=== PATIENT | male | born 1975 | race Caucasian/White ===

== ENCOUNTER 2016-11-13 21:51 | Observation (INO) | payer BC ==
[2016-11-13] MEDS ORDERED: NITROGLYCERIN SL TABS 0.4 MG TAB SUBLINGUAL STA (22:10)
[2016-11-13] MEDS ORDERED: ASPIRIN 81 MG CHEW PO STA (22:10)
--- NOTE | 2016-11-13 22:27 | ED ---
Chest Pain HPI <Santosh Arellano - Last Filed: 11/13/16 23:30> - General Source: patient, RN notes reviewed Mode of arrival: ambulatory Limitations: no limitations <Debra Galarza - Last Filed: 11/13/16 23:41> - General Chief Complaint: Chest Pain Stated Complaint: chest pain Time Seen by Provider: 11/13/16 22:04 - History of Present Illness Initial Comments: 41-year-old male presents to the emergency department with a chief complaint of chest pain. Patient states that work and a urinalysis tightness the left upper chest. Patient states he had some pain and numbness going down his left arm as well and he does have some pain radiating into the jaw. Patient states that this started about a 5 out of 10. Patient states he has hypertension. Patient states that he has no specific in her history. Patient has nausea vomiting with sweating at that time. Patient states that the pain seems to be better at this time it was at home. Patient denies any fever or chills. Patient denies any recent fever, chills, back pain, abdominal pain, numbness or tingling, dysuria or hematuria, constipation or diarrhea, headaches or visual changes, or any other current symptoms. (Debra Galarza) - Related Data Home Medications Medication Instructions Recorded Confirmed Ascorbic Acid [Vitamin C] 500 mg PO DAILY 11/13/16 11/13/16 Losartan [Cozaar] 50 mg PO DAILY 11/13/16 11/13/16 Allergies Allergy/AdvReac Type Severity Reaction Status Date / Time No Known Allergies Allergy Verified 11/13/16 22:59 Review of Systems ROS Other: All systems not noted in ROS Statement are negative. <Santosh Arellano - Last Filed: 11/13/16 23:30> ROS Other: All systems not noted in ROS Statement are negative. <Debra Galarza - Last Filed: 11/13/16 23:41> ROS Statement: Those systems with pertinent positive or pertinent negative responses have been documented in the HPI. EKG Findings - EKG Comments: EKG Findings:: Sinus tachycardia 103 bpm, normal axis, no atopy, no S-T depressions or elevations, T wave inversion in V3 and V4 V5 and V6 <Debra Galarza - Last Filed: 11/13/16 23:41> Past Medical History Past Medical History: Hypertension History of Any Multi-Drug Resistant Organisms: None Reported Past Surgical History: Orthopedic Surgery Past Psychological History: No Psychological Hx Reported Smoking Status: Never smoker Past Alcohol Use History: Occasional Past Drug Use History: None Reported <Debra Galarza - Last Filed: 11/13/16 23:41> General Exam <Santosh Arellano - Last Filed: 11/13/16 23:30> Limitations: no limitations <Debra Galarza - Last Filed: 11/13/16 23:41> - General Exam Comments Initial Comments: General: The patient is awake and alert, in no distress, and does not appear acutely ill. Eye: Pupils are equal, round and reactive to light, extra-ocular movements are intact; there is normal conjunctiva bilaterally. No signs of icterus. Ears, nose, mouth and throat: There are moist mucous membranes. Neck: The neck is supple, there is no tenderness. Cardiovascular: There is a regular rate and rhythm. No murmur, rub or gallop is appreciated. Respiratory: Lungs are clear to auscultation, respirations are non-labored, breath sounds are equal. No wheezes, stridor, rales, or rhonchi. Gastrointestinal: Soft, non-distended, non-tender abdomen without masses or organomegaly noted. There is no rebound or guarding present. No CVA tenderness. Bowel sounds are unremarkable. Back: There is no tenderness to palpation in the midline. There is no obvious deformity. No rashes noted. Musculoskeletal: Normal ROM, no tenderness, There is no pedal edema. There is no calf tenderness or swelling. Sensation intact. Pulses equal bilaterally 2+. Neurological: CN II-XII intact, There are no obvious motor or sensory deficits. Coordination appears grossly intact. Speech is normal. Skin: Skin is warm and dry and no rashes or lesions are noted. Psychiatric: Cooperative, appropriate mood & affect, normal judgment. (Debra Galarza) Chest Pain MDM <Santosh Arellano - Last Filed: 11/13/16 23:30> <Debra Galarza - Last Filed: 11/13/16 23:41> - [facility] Patient also evaluated by myself, Dr. Arellano. Patient does have some discomfort still. Patient updated on results and plan. Practitioner Liza contacted regarding case and will admit for Dr. Buchanan. Cardiology will be consulted. Patient states he did have a negative stress test a month and a half ago. (Santosh Arellano) 42-year-old male presents emergency department chief complaint chest pain. Patient had left sided chest pain left arm pain jaw pain. There is concern for possible cardiac origin. He did receive nitro with no improvement. We will start patient on morphine as well as heparin. This is discussed the patient isn 't agreement. (Debra Galarza) Disposition <Santosh Arellano - Last Filed: 11/13/16 23:30> Time of Disposition: 23:41 Decision Date: 11/13/16 Decision Time: 23:41 <Debra Galarza - Last Filed: 11/13/16 23:41> Clinical Impression: Unstable angina Disposition: ADMITTED IP TO THIS HOSP Condition: Stable
[2016-11-13 22:29] LABS: Basophils % (A) 1 %; CH 31.9; CHCM 36.5; Eosinophils # (A) 0.1 k/uL (0-0.7); Eosinophils % (A) 2 %; HCT 42.7 % (39.0-53.0); HDW 2.81; HGB 15.1 gm/dL (13.0-17.5); Luc # (Auto) 0.18; Luc % (Auto) 3; Lymphocytes # (A) 1.6 k/uL (1.0-4.8); Lymphocytes % (A) 22 %; MCHC 35.4 g/dL (31.0-37.0); MCV 87.7 fL (80.0-100.0); Mean Platelet Volume 7.6; Monocytes # (A) 0.4 k/uL (0-1.0); Monocytes % (A) 6 %; Neutrophils # (A) 4.8 k/uL (1.3-7.7); Neutrophils % (A) 67 %; RBC 4.87 m/uL (4.30-5.90); RDW 12.6 % (11.5-15.5); WBC 7.2 k/uL (3.8-10.6); WBC (Perox) 7.23
[2016-11-13 22:48] LABS: ALT 88 U/L (21-72); AST 41 U/L (17-59); Alkaline Phosphatase 61 U/L (38-126); Amylase <30 U/L (30-110); Anion Gap 13 mmol/L; Blood Urea Nitrogen 12 mg/dL (9-20); Calcium 9.7 mg/dL (8.4-10.2); Carbon Dioxide 24 mmol/L (22-30); Chloride 103 mmol/L (98-107); Glucose 185 mg/dL (74-99); Magnesium 2.1 mg/dL (1.6-2.3); Non-African American GFR(MDRD) >60 (>60 ml/min/1.73 sqM); Potassium 3.9 mmol/L (3.5-5.1); Sodium 140 mmol/L (137-145); Total Bilirubin 0.7 mg/dL (0.2-1.3); Total Protein 7.6 g/dL (6.3-8.2)
[2016-11-13 22:49] LABS: Partial Thromboplastin Time 22.7 sec (22.0-30.0); Prothrombin Time 9.9 sec (9.0-12.0)
[2016-11-13 23:00] LABS: Creatine Kinase 116 U/L (55-170)
[2016-11-13 23:13] LABS: Creatine Kinase MB 0.8 ng/mL (0.0-2.4); Troponin I <0.012 ng/mL (0.000-0.034)
--- NOTE | 2016-11-13 23:14 | XR ---
EXAMINATION TYPE: XR chest 2V DATE OF EXAM: 11/13/2016 10:55 PM COMPARISON: None. HISTORY: Chest pain TECHNIQUE: Frontal and lateral views of the chest are obtained. FINDINGS: There is no focal air space opacity, pleural effusion, or pneumothorax seen. The cardiac silhouette size is within normal limits. The osseous structures are intact. IMPRESSION: No acute cardiopulmonary process.
[2016-11-13] MEDS ORDERED: HEPARIN SODIUM,PORCINE 5,000 UNIT/ML 1 ML VIAL IV ONE (23:41)
[2016-11-13] MEDS ORDERED: NITROGLYCERIN SL TABS 0.4 MG TAB SUBLINGUAL PRN (23:41)
[2016-11-13] MEDS ORDERED: MORPHINE SULFATE 4 MG/ML SYRINGE IVP PRN (23:43)
[2016-11-13] MEDS ORDERED: MORPHINE SULFATE 4 MG/ML SYRINGE IVP STA (23:43)
[2016-11-13] MEDS ORDERED: HEPARIN SODIUM,PORCINE/D5W PMX 25,000 UNIT in DEXTROSE/WATER 1 500ML.BAG IV SCH (23:45)
[2016-11-14] MEDS: NITROGLYCERIN OINT 1 INCH/GM PACKET TOPICAL SCH ×2 (00:04→07:10)
[2016-11-14 03:28] VITALS: BMI 39.6
[2016-11-14 04:33] LABS: Cholesterol 180 mg/dL (<200); HDL Cholesterol 35 mg/dL (40-60); Triglycerides 191 mg/dL (<150)
[2016-11-14 04:34] LABS: Creatine Kinase 87 U/L (55-170)
[2016-11-14 04:47] LABS: Creatine Kinase MB 0.5 ng/mL (0.0-2.4); Troponin I <0.012 ng/mL (0.000-0.034)
[2016-11-14] MEDS ORDERED: NITROGLYCERIN SL TABS 0.4 MG TAB SUBLINGUAL PRN (08:03)
[2016-11-14] MEDS ORDERED: SODIUM CHLORIDE 0.9% 1,000 ML in EMPTY BAG 1 BAG IV ONE (08:03)
[2016-11-14] MEDS ORDERED: ALPRAZolam 0.5 MG TAB PO PRN (08:03)
[2016-11-14] MEDS ORDERED: ALPRAZolam 0.25 MG TAB PO PRN (08:03)
[2016-11-14] MEDS ORDERED: ASPIRIN 325 MG TAB PO STA (08:07)
[2016-11-14] MEDS ORDERED: ATORVASTATIN 80 MG TAB PO STA (08:07)
--- NOTE | 2016-11-14 08:26 | CONS ---
DATE OF CONSULTATION: CHIEF COMPLAINT: Chest pain. Tyree is a 41-year-old gentleman with history of hypertension who presented to the hospital complaining of chest pain. He describes it as a precordial chest pressure that radiated to his left arm and jaw, moderate to severe intensity, came on at rest, was concerned, came to the ER and got admitted. His EKG shows normal sinus rhythm with nonspecific ST-T wave changes. Two sets of cardiac enzymes have been negative. LDL cholesterol is 107. Creatinine is normal at 0.86. Hemoglobin is normal at 15.1. Patient had a stress test back in June 2016 that revealed a significant EKG changes with exercise. Given his symptomatology, risk factors and the abnormal stress test, I advised the patient to undergo cardiac catheterization for definitive diagnosis. He had been explained of risks, benefits, and alternatives, understood and accepted. Past medical history is significant for hypertension. Medications include Cozaar 50 mg daily, vitamin C. ALLERGIES: No known drug allergies. FAMILY HISTORY: Negative for premature coronary artery disease. SOCIAL HISTORY: Negative for smoking, EtOH abuse, or drug abuse. REVIEW OF SYSTEMS: HEENT: Unremarkable. CARDIAC: As described above. RESPIRATORY: Negative. GI: Negative. GENITOURINARY: Negative. ALLERGY/IMMUNOLOGY: Negative. MUSCULOSKELETAL: Negative. ENDOCRINE: Negative. DERMATOLOGY: Negative. CONSTITUTIONAL: Negative. ONCOLOGICAL: Negative. The rest of the system review is not relevant. On exam, comfortable at rest. Vital signs are stable. There is no jugular venous distention. Chest exam reveals good air entry bilaterally. Heart exam reveals first and second heart sounds. No gallop. Abdomen is soft, nontender. Exam of the extremities did not reveal edema. Peripheral pulses are felt. EKG and labs have been reviewed and are as above. ASSESSMENT: Unstable angina. PLAN: I advised the patient to undergo cardiac catheterization for further evaluation. He has been explained of risks, benefits, and alternatives, understood and accepted.
[2016-11-14] MEDS ORDERED: ASCORBIC ACID 500 MG TAB PO SCH (09:00)
[2016-11-14] MEDS ORDERED: ASPIRIN 325 MG TAB PO SCH (09:00)
[2016-11-14] MEDS ORDERED: LOSARTAN 50 MG TAB PO SCH (09:00)
[2016-11-14] MEDS ORDERED: LIDOCAINE 2% INJ 20 MG/ML (20 ML MDV) ONE (09:50)
[2016-11-14] MEDS ORDERED: diphenhydrAMINE 50 MG/ML 1 ML VIAL ONE (09:50)
[2016-11-14] MEDS ORDERED: MIDAZOLAM 2 MG/2 ML VIAL ONE (09:50)
[2016-11-14] MEDS ORDERED: diphenhydrAMINE 50 MG/ML 1 ML VIAL IVP ONE (10:18)
[2016-11-14] MEDS ORDERED: MIDAZOLAM 2 MG/2 ML VIAL IVP ONE (10:18)
[2016-11-14] MEDS ORDERED: IV FLUID CONTINUATION 900 ML IV ONE (10:23)
[2016-11-14] MEDS ORDERED: fentaNYL (PF) 50 MCG/ML 2 ML AMP ONE (10:23)
[2016-11-14] MEDS ORDERED: LIDOCAINE 2% INJ 20 MG/ML SQ ONE (10:24)
[2016-11-14] MEDS ORDERED: fentaNYL (PF) 50 MCG/ML 2 ML AMP IV ONE (10:25)
[2016-11-14] MEDS ORDERED: IOHEXOL 350 MG/ML 100 ML BOTTLE INJ ONE (10:39)
[2016-11-14] MEDS ORDERED: RX INFO: IV CONTRAST WAS GIVEN 1 EACH MISC MISCELLANE PRN (10:39)
[2016-11-14] MEDS ORDERED: SODIUM CHLORIDE 0.9% 1,000 ML IV SCH (10:45)
--- NOTE | 2016-11-14 10:58 | CC ---
DATE OF SERVICE: INDICATION: Unstable angina. PROCEDURE NOTE: After obtaining informed consent, left heart catheterization and coronary angiogram are performed via the right femoral artery using standard Fabio catheters. Patient tolerated the procedure well without any obvious immediate complications. FINDINGS: 1. HEMODYNAMICS: Left ventricular end-diastolic pressure was 8 to 12 mm. There is no significant gradient across the aortic valve. 2. LEFT VENTRICULOGRAM: Left ventriculogram was not performed. 3. ANGIOGRAPHIC DATA: Left Main Coronary Artery: Left main coronary artery is a normal size vessel and is free of stenosis. It divides into left anterior descending coronary artery and circumflex coronary artery. LAD shows a mild atherosclerotic plaque in its midportion. Circumflex coronary artery and its branches are free of significant stenosis. Right coronary artery is a large dominant vessel and is free of significant stenosis. CONCLUSIONS: 1. Mild stenosis involving left anterior descending coronary artery. 2. Normal left ventricular end-diastolic pressure. PLAN: Patient's chest discomfort is probably noncardiac in origin and the management is going to be in the form of risk factor modification and optimal medical therapy. Patient is pain free at the moment. A femoral angiogram was performed and Angio-Seal was deployed for hemostasis.
[2016-11-14 12:27] LABS: Creatine Kinase 70 U/L (55-170)
[2016-11-14 12:40] LABS: Creatine Kinase MB 0.3 ng/mL (0.0-2.4); Troponin I <0.012 ng/mL (0.000-0.034)
[2016-11-14 12:47] VITALS: RESP 16
[2016-11-14 15:52] VITALS: BP 115/75; PULSE 81; TEMP 97.4
--- NOTE | 2016-11-14 17:58 | HP ---
DATE OF ADMISSION: CHIEF COMPLAINT: Chest pain. HISTORY OF PRESENT ILLNESS: Mr. Sena is a 41-year-old male with known history of hypertension, came to the hospital with complaints of chest pain mainly in the left side of the chest and radiated to left arm as well as jaw and also felt some numbness in the left arm, which occurred at rest and patient came to the hospital. Chest pain is associated with nausea and episode of vomiting which made him come to the hospital. Otherwise denied any dizziness or lightheadedness. EKG showed normal sinus rhythm. Cardiac enzymes are not elevated. The patient was admitted to hospital for unstable angina and underwent cardiac catheterization without any intervention at this time. Patient says that previously she had abnormal stress test. Currently denied any complaints of recent illnesses or sick contacts or recent travel. REVIEW OF SYSTEMS: CONSTITUTIONAL: No fever. No chills. No weakness, malaise. RESPIRATORY: No cough or sputum production. CARDIOVASCULAR: Currently chest pain 1 to 2 in severity. No short of breath. No leg swelling. ABDOMEN: No nausea, vomiting, or abdominal pain. GENITOURINARY: Negative. ENDOCRINE: Negative. PSYCHIATRY: Negative. SKIN: Negative. All other fourteen-point review of systems negative except as above. PAST MEDICAL HISTORY: Hypertension. PAST SURGICAL HISTORY: Orthopedic surgery. SOCIAL HISTORY: Patient never a smoker, occasional alcohol use. Denied any drugs or IVDU. ALLERGIES: No known drug allergies. Home medication include: Cozaar. FAMILY HISTORY: No history of diabetes mellitus. No history of premature heart disease in the family. PHYSICAL EXAMINATION: A 41-year-old male lying in bed comfortably, awake, alert, oriented, x3, appears to be in no apparent distress. VITALS: Blood pressure is 105/67, pulse is 84, respirations 16, temperature afebrile, pulse ox 93% on room air. HEENT: Atraumatic, normocephalic. Neck is supple. No JVD. CVS: S1, S2 heard. No murmurs, no gallop. LUNGS: Bilateral air entry is present. No wheezing. No crackles. Nonlabored breathing. ABDOMEN: Soft, nontender. Bowel sounds are present. 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 No focal neurologic deficits. EXTREMITIES: No edema. Pulses palpable bilaterally. No clubbing or cyanosis. PSYCHIATRIC: Cooperative. LABORATORY DATA: WBC 7.2, hemoglobin 15.1, platelets 242. INR is 1.0. D-dimer 0.21. Sodium 140, potassium 3.9, chloride 103, bicarb is 24. BUN 12, creatinine 0.86. Blood sugar is 185, ALT 88. LDL is 107, total cholesterol 191. Influenza negative. Troponin x3 negative. EKG showed normal sinus rhythm. Chest x-ray, no acute cardiopulmonary process. IMPRESSION: 1. Unstable angina, 2. History of abnormal stress test. 3. Hypertension. 4. Morbid obesity with body mass index of 39.6. 5. Hyperlipidemia with LDL of 107. 6. Mildly elevated ALT level of 88. DISCUSSION AND PLAN: Patient will be continued on current medications. The patient underwent cardiac catheterization. No intervention necessary. Will continue the current management, continue the telemonitoring. Serial troponins x3 negative. Patient will be started on hyperlipidemic medications and follow up closely. Further recommendations based on the clinical course.
--- NOTE | 2016-11-15 09:34 | DS ---
DATE OF ADMISSION: 11/13/2016 DATE OF DISCHARGE: 11/14/2016 DISCHARGE DIAGNOSES: 1. Chest pain, possibly musculoskeletal in origin, status post cardiac catheterization. 2. Hyperlipidemia. 3. Hypertension. 4. Morbid obesity with body mass index of 39.6. 5. Slightly elevated ALT level to 88. HOSPITAL COURSE: Mr. Sena is a 41-year-old male with a known history of hypertension, was admitted to the hospital with complaints of chest pain left side radiating to the jaw and arm and also has a history of recent abnormal stress test. Due to the above mentioned issues, patient underwent cardiac catheterization, which showed mild stenosis involving LAD and normal left ventricular end-diastolic pressure. Otherwise, the patient currently maintained on symptomatic management and serial EKGs and troponins are negative. Cardiology has seen the patient and the patient clinically and hemodynamically stable at this time and wants to be discharged home today. Patient to follow with primary care physician and Cardiology as an outpatient. DISCHARGE PHYSICAL EXAMINATION: A 41-year-old male lying in bed comfortably, awake, alert, alert, oriented x3. He appears to be in no apparent distress. VITALS: Blood pressure is 115/75, pulse is 81, respirations 16, temperature afebrile, pulse ox 96% on room air. Laboratory data reviewed. Discharge physical examination done. Discharge medications include: 1. Ascorbic acid 500 mg p.o. daily. 2. Losartan 50 mg p.o. daily. 3. Atorvastatin 10 mg p.o. at bedtime. Follow with Dr. Ross in 1 to [address] Juve Thompson on 11/20/16 at 11:15 a.m. Activity as tolerated. Heart healthy diet and low-salt diet. Home with self-care.
== END 2016-11-14 18:08 | disposition home or self-care (01) ==
LOC: EC 21:51 → 6SEL 23:41
PROVIDERS: ADMIT Internal Medicine; ATTEND Internal Medicine
DX: R07.89 Other chest pain (principal); I10 Essential (primary) hypertension; E66.01 Morbid (severe) obesity due to excess calories; Z68.39 Body mass index [BMI] 39.0-39.9, adult; E78.5 Hyperlipidemia, unspecified; R79.89 Other specified abnormal findings of blood chemistry; R94.39 Abnormal result of other cardiovascular function study; R11.2 Nausea with vomiting, unspecified; R61 Generalized hyperhidrosis; R20.0 Anesthesia of skin; M79.602 Pain in left arm; R68.84 Jaw pain; Z79.899 Other long term (current) drug therapy
CPT/HCPCS: 96376; 99285; 36415; 93005; 93458; 85379; 80061; 80053; 82150; 82550 ×2; 82553 ×2; 83690; 83735; 84484 ×2; 85025; 85610; 85730 ×2; 87502; 71020; 96365; 96366 ×2; G0378 ×2; C1760; C1894; C1769; J2001; J2250; J1200; J1644 ×2; Q9967; J3010

== ENCOUNTER → 2017-03-09 | Outpatient (CLI) | payer BC ==
[2017-03-09 16:56] LABS: ALT 59 U/L (21-72); AST 35 U/L (17-59); Cholesterol 133 mg/dL (<200); HDL Cholesterol 43 mg/dL (40-60); Triglycerides 78 mg/dL (<150)
== END ==
LOC: LABWHC1 16:05
PROVIDERS: ATTEND Internal Medicine Cardiovascular Disease
DX: E78.2 Mixed hyperlipidemia (principal)
CPT/HCPCS: 36415; 80061; 84450; 84460

== ENCOUNTER → 2019-03-11 | Outpatient (CLI) | payer BC | END | disposition home or self-care (01) | LOC: LABWHC1 08:47 | PROVIDERS: ATTEND Internal Medicine Cardiovascular Disease | DX: E78.2 Mixed hyperlipidemia (principal) | CPT/HCPCS: 36415; 80061; 84450; 84460 ==

== ENCOUNTER → 2019-10-04 | Outpatient (CLI) | payer BC ==
--- NOTE | 2019-10-04 08:50 | US ---
EXAMINATION TYPE: US liver DATE OF EXAM: 10/04/2019 COMPARISON: NONE CLINICAL HISTORY: R94.5 ABN LIVER FUNCTION TEST. No pain. NPO. Abnormal labs. EXAM MEASUREMENTS: Liver Length: 17.8 cm Gallbladder Wall: 0.1 cm CBD: 0.5 cm Right Kidney: 12.0 x 5.4 x 6.7 cm Pancreas: Appears echogenic. Obscured by overlying bowel gas. Liver: Appears echogenic and heterogenous. Coarse and upper limits of normal in size. Findings Limi sumanth evaluation for hepatic masses. Left lobe hypoechoic lesion visualized- 2.0 x 2.9 x 2.2 cm Gallbladder: wnl Evidence for sonographic Razo's sign: neg CBD: wnl Right Kidney: wnl IMPRESSION: Coarsened hepatic echotexture, which can be seen in hepatic steatosis however other hepat ocellular diseases are possible. Additionally there is a 2.9 cm left lobe hepatic mass that is nonspe cific and for which three-phase enhanced CT or MR abdomen are recommended for better characterization .
== END | disposition home or self-care (01) ==
LOC: RADUSWWP 06:55
PROVIDERS: ATTEND Internal Medicine
DX: K76.0 Fatty (change of) liver, not elsewhere classified (principal); R16.0 Hepatomegaly, not elsewhere classified
CPT/HCPCS: 76705

== ENCOUNTER → 2019-10-10 | Outpatient (CLI) | payer BC | END | disposition home or self-care (01) | LOC: RADMRIMAIN 19:02 | PROVIDERS: ATTEND Internal Medicine | DX: Z53.9 Procedure and treatment not carried out, unspecified reason (principal) ==

== ENCOUNTER → 2020-04-04 | Outpatient (CLI) | payer BC ==
[2020-04-04 08:02] LABS: HCT 42.8 % (39.0-53.0); HGB 14.7 gm/dL (13.0-17.5); MCH 31.2 pg (25.0-35.0); MCHC 34.4 g/dL (31.0-37.0); MCV 90.8 fL (80.0-100.0); Mean Platelet Volume 7.8; Platelet Count 217 k/uL (150-450); RBC 4.71 m/uL (4.30-5.90); RDW 12.2 % (11.5-15.5)
[2020-04-04 11:21] LABS: INR 0.93 (0.90-1.11)
[2020-04-04 11:46] LABS: Albumin 4.4 g/dL (3.80-4.90); Albumin/Globulin Ratio 2.32 (1.60-3.17); Bilirubin, Conjugated 0.2 mg/dL (0.20-0.40); Bilirubin,Unconjugated 0.2 mg/dL; Globulin 1.9 g/dL (1.6-3.3); Total Bilirubin 0.4 mg/dL (0.2-1.2); Total Protein 6.3 g/dL (6.2-8.2)
[2020-04-04 11:55] LABS: Alpha Fetoprotein, Tumor Mkr 3.6 ng/mL (0.0-7.9)
[2020-04-04 12:37] LABS: Hepatitis A Antibody IgM Non-Reactive (Non-Reactive); Hepatitis B Core IgM Non-Reactive (Non-Reactive); Hepatitis B Surface Antigen Non-Reactive (Non-Reactive); Hepatitis C IgG Antibody Non-Reactive (Non-Reactive)
== END | disposition home or self-care (01) ==
LOC: LABWHC1 07:30
PROVIDERS: ATTEND Physician Assistant
DX: R16.0 Hepatomegaly, not elsewhere classified (principal); R74.8 Abnormal levels of other serum enzymes
CPT/HCPCS: 36415; 80074; 80076; 82105; 85027; 85610

== ENCOUNTER → 2020-06-05 | Outpatient (CLI) | payer BC ==
--- NOTE | 2020-06-05 08:18 | US ---
EXAMINATION TYPE: US liver DATE OF EXAM: 06/05/2020 COMPARISON: US October 04, 2019. CLINICAL HISTORY: R16.0 Hepatomegaly, not elsewhere classified. EXAM MEASUREMENTS: Liver Length: 16.6 cm Gallbladder Wall: 0.2 cm CBD: 0.4 cm Right Kidney: 13.0 x 5.7 x 5.2 cm Pancreas: Tail obscured by overlying bowel gas Liver: well circumscribed hypoechoic lesion left lobe measuring 2.2 x 2.6 x 2.7cm Gallbladder: wnl Evidence for sonographic Razo's sign:no CBD: wnl Right Kidney: measures large Persistent heterogeneous hyperechoic somewhat prominent liver. Evaluation for focal masses suboptimal due to the heterogeneity. No new intrahepatic ductal dilatation. Technologist marked a 2.2 x 2.6 x 2 .7 cm stable hypoechoic lesion left hepatic dome. IMPRESSION: Overall stable findings, heterogeneous hyperechoic appearance liver could be on basis of diffuse fatty infiltration and/or underlying hepatocellular disease. Stable 2.7 cm hypoechoic mass in which further investigation with liver protocol contrast-enhanced CT or MRI is advised to better kamron luate and characterize.
== END | disposition home or self-care (01) ==
LOC: RADUSWWP 07:06
PROVIDERS: ATTEND Physician Assistant
DX: R16.0 Hepatomegaly, not elsewhere classified (principal)
CPT/HCPCS: 76705

== ENCOUNTER → 2020-09-06 | Outpatient (CLI) | payer BC ==
[2020-09-06 16:51] LABS: African American GFR (CKD) 118.3 (60.0-200.0); Albumin 4.9 g/dL (3.80-4.90); Albumin/Globulin Ratio 2.58 (1.60-3.17); Anion Gap 7.6 mmol/L (4.00-12.00); BUN/Creat Ratio 15.56 Ratio (12.00-20.00); Calcium 9.7 mg/dL (8.7-10.3); Carbon Dioxide 28.4 mmol/L (21.6-31.8); Chol/HDL Ratio 3.92; Globulin 1.9 g/dL (1.6-3.3); LDL Cholesterol,Calculated 85.8 mg/dL (0.0-131.0); Non-African American GFR(CKD) 102.1 (60.0-200.0); Potassium 4.8 mmol/L (3.5-5.5); Total Bilirubin 0.4 mg/dL (0.3-1.2); Total Protein 6.8 g/dL (6.2-8.2); VLDL Calculation 19.2 mg/dL (5.00-40.00)
[2020-09-06 17:00] LABS: PSA Annual Screen 0.8 ng/mL (0.0-4.0)
== END | disposition home or self-care (01) ==
LOC: LABWHC1 08:26
PROVIDERS: ATTEND Internal Medicine
DX: Z00.00 Encounter for general adult medical examination without abnormal findings (principal); N40.1 Benign prostatic hyperplasia with lower urinary tract symptoms; R94.5 Abnormal results of liver function studies; Z12.5 Encounter for screening for malignant neoplasm of prostate
CPT/HCPCS: 80061; 80053; 83036; 36415; G0103

== ENCOUNTER 2020-10-01 22:43 | Emergency (ER) | payer BC ==
[2020-10-01 22:54] VITALS: TEMP 98.3
[2020-10-01] MEDS ORDERED: ASPIRIN 81 MG PO STA (23:10)
--- NOTE | 2020-10-01 23:15 | ED ---
General Adult HPI - General Source: patient Mode of arrival: ambulatory Limitations: no limitations <Jazzy Rangel - Last Filed: 10/02/20 03:11> <Sonu Dove - Last Filed: 10/02/20 05:56> - General Chief complaint: Chest Pain Stated complaint: Chest pain Time Seen by Provider: 10/01/20 22:54 - History of Present Illness Initial comments: 45 year-old male patient presents to the emergency department today for evaluation of numbness, tingling, weakness to the left arm. Patient states that about 45 minutes prior to arrival he woke from sleep with the symptoms. He states that he is also having some tightness over the left chest. States he is also feeling abnormal fullness and nausea. Denies any vomiting. Denies any shortness of breath. He did have similar symptoms a couple of years ago he was evaluated for heart attack. He did not receive any sense at that time. He is taking a daily baby aspirin, medication for hyperlipidemia and hypertension. Patient denies any recent rash, fever, chills, cough, abdominal pain, vomiting, diarrhea, constipation, back pain, dizziness, hematuria, dysuria, urinary urgency, urinary frequency, headache, visual changes, or any other complaints. ( Jazzy Rangel) - Related Data Home Medications Medication Instructions Recorded Confirmed Losartan [Cozaar] 50 mg PO DAILY 11/13/16 10/01/20 Aspirin [Adult Low Dose Aspirin EC] 81 mg PO DAILY 10/01/20 10/01/20 Atorvastatin [Lipitor] 10 mg PO DAILY 10/01/20 10/01/20 Super C Immune Complex Multivitamin 1 tab PO DAILY 10/01/20 10/01/20 Allergies Allergy/AdvReac Type Severity Reaction Status Date / Time No Known Allergies Allergy Verified 10/01/20 23:25 Review of Systems ROS Other: All systems not noted in ROS Statement are negative. <Jazzy Rangel - Last Filed: 10/02/20 03:11> ROS Other: All systems not noted in ROS Statement are negative. <Sonu Dove - Last Filed: 10/02/20 05:56> ROS Statement: Those systems with pertinent positive or pertinent negative responses have been documented in the HPI. Past Medical History Past Medical History: Hypertension History of Any Multi-Drug Resistant Organisms: None Reported Past Surgical History: Orthopedic Surgery Additional Past Surgical History / Comment(s): x2 Colonoscopy Past Anesthesia/Blood Transfusion Reactions: No Reported Reaction Past Psychological History: No Psychological Hx Reported Smoking Status: Never smoker Past Alcohol Use History: Occasional Past Drug Use History: None Reported - Past Family History Father History Unknown: Yes <ClaireJazzy - Last Filed: 10/02/20 03:11> General Exam Limitations: no limitations General appearance: alert, in no apparent distress, other (Physical well- developed, well-nourished adult male patient in no acute distress. Vital signs upon presentation are temperature 98.3F, pulse 85, respirations 20, blood pressure 157/99, pulse ox 96% on room air.) Eye exam: Present: normal appearance, PERRL, EOMI. Absent: scleral icterus, conjunctival injection, periorbital swelling ENT exam: Present: normal exam, normal oropharynx, mucous membranes moist Respiratory exam: Present: normal lung sounds bilaterally. Absent: respiratory distress, wheezes, rales, rhonchi, stridor Cardiovascular Exam: Present: regular rate, normal rhythm, normal heart sounds. Absent: systolic murmur, diastolic murmur, rubs, gallop, clicks GI/Abdominal exam: Present: soft, normal bowel sounds. Absent: distended, tenderness, guarding, rebound, rigid Extremities exam: Present: normal inspection, full ROM, normal capillary refill. Absent: tenderness, pedal edema, joint swelling, calf tenderness Neurological exam: Present: alert, oriented X3, CN II-XII intact Expanded Speech: Present: fluid speech Cranial nerves: EOM's Intact: Normal, Tongue Deviation: Normal, Nystagmus: Normal Motor strength exam: RUE: 5, LUE: 5, RLE: 5, LLE: 5 Psychiatric exam: Present: normal affect, normal mood Skin exam: Present: warm, dry, intact, normal color. Absent: rash <Jazzy Rangel M - Last Filed: 10/02/20 03:11> Course Vital Signs 10/01/20 10/02/20 10/02/20 22:47 00:03 01:00 Temperature 98.3 F Pulse Rate 85 77 83 Respiratory 20 16 18 Rate Blood Pressure 157/99 125/76 150/93 O2 Sat by Pulse 96 97 98 Oximetry 10/02/20 10/02/20 10/02/20 01:30 02:27 03:21 Temperature Pulse Rate 76 73 Respiratory 16 16 Rate Blood Pressure 128/81 114/61 121/83 O2 Sat by Pulse 98 99 Oximetry EKG Findings - EKG Comments: EKG Findings:: EKG obtained at 2305 shows normal sinus rhythm with a ventricular rate is 78, RI interval 182, QRS duration 92, QT 352, QTc 41. No evidence of ST elevation or depression. <Jazzy Rangel - Last Filed: 10/02/20 03:11> Medical Decision Making - Lab Data Result diagrams: 10/01/20 23:26 10/01/20 23:26 - Radiology Data Radiology results: report reviewed, image reviewed <Jazzy Rangel - Last Filed: 10/02/20 03:11> - Lab Data Result diagrams: 10/01/20 23:26 10/01/20 23:26 <Sonu Dove - Last Filed: 10/02/20 05:56> - Medical Decision Making 45-year-old male patient percents to the emergency department today for evaluation of chest tightness, left arm numbness and tingling. Physical examination is unremarkable. He is neurologically intact with no focal deficits. NIH score is 0. Labs reviewed and were unremarkable. CT brain without contrast and CT head neck angiography were obtained and were negative. I did discuss findings and results with the patient. Recommendation was for him to be admitted for serial troponins and evaluation by neurology for possible TIA. Patient did prefer to be discharged home to follow-up outpatient. Symptoms of the left arm numbness and tingling have completely resolved. We did do a second troponin was also negative. He'll be discharged to follow-up with neurology for further evaluation as soon as possible. He is instructed follow up with his primary care physician for recheck in 1-2 days. We did discuss return parameters and great detail. He is to maintain low threshold for return especially with any neurological symptoms. He verbalizes understanding and agrees with this plan. (Jazzy Rangel) I saw this patient in conjunction with the physician medical office assistant. I performed independent history and physical exam. Agree with case management. Case had been discussed with covering physician in anticipation of admission, patient was feeling better. (Sonu Dove) - Lab Data Lab Results 10/01/20 10/01/20 10/01/20 Range/Units 23:26 23:26 23:26 WBC 10.1 (3.8-10.6) k/uL RBC 4.84 (4.30-5.90) m/uL Hgb 14.5 (13.0-17.5) gm/dL Hct 43.0 (39.0-53.0) % MCV 88.9 (80.0-100.0) fL MCH 30.0 (25.0-35.0) pg MCHC 33.8 (31.0-37.0) g/dL RDW 12.4 (11.5-15.5) % Plt Count 234 (150-450) k/uL MPV 7.7 Neutrophils % (Manual) 40 % Lymphocytes % (Manual) 23 % Monocytes % (Manual) 11 % Eosinophils % (Manual) 26 % Neutrophils # (Manual) 4.04 (1.3-7.7) k/uL Lymphocytes # (Manual) 2.32 (1.0-4.8) k/uL Monocytes # (Manual) 1.11 H (0-1.0) k/uL Eosinophils # (Manual) 2.63 H (0-0.7) k/uL Nucleated RBCs 0 (0-0) /100 WBC Manual Slide Review Performed PT 10.2 (9.0-12.0) sec INR 0.9 (<1.2) APTT 21.8 L (22.0-30.0) sec Sodium 139 (137-145) mmol/L Potassium 4.1 (3.5-5.1) mmol/L Chloride 103 (98-107) mmol/L Carbon Dioxide 28 (22-30) mmol/L Anion Gap 8 mmol/L BUN 15 (9-20) mg/dL Creatinine 0.82 (0.66-1.25) mg/dL Est GFR (CKD-EPI)AfAm >90 (>60 ml/min/1.73 sqM) Est GFR (CKD-EPI)NonAf >90 (>60 ml/min/1.73 sqM) Glucose 154 H (74-99) mg/dL Calcium 9.4 (8.4-10.2) mg/dL Magnesium 2.2 (1.6-2.3) mg/dL Total Bilirubin 0.5 (0.2-1.3) mg/dL AST 34 (17-59) U/L ALT 62 H (4-49) U/L Alkaline Phosphatase 52 (38-126) U/L Troponin I (0.000-0.034) ng/mL Total Protein 7.4 (6.3-8.2) g/dL Albumin 4.6 (3.5-5.0) g/dL Lipase 70 (23-300) U/L 10/01/20 10/02/20 Range/Units 23:26 02:24 WBC (3.8-10.6) k/uL RBC (4.30-5.90) m/uL Hgb (13.0-17.5) gm/dL Hct (39.0-53.0) % MCV (80.0-100.0) fL MCH (25.0-35.0) pg MCHC (31.0-37.0) g/dL RDW (11.5-15.5) % Plt Count (150-450) k/uL MPV Neutrophils % (Manual) % Lymphocytes % (Manual) % Monocytes % (Manual) % Eosinophils % (Manual) % Neutrophils # (Manual) (1.3-7.7) k/uL Lymphocytes # (Manual) (1.0-4.8) k/uL Monocytes # (Manual) (0-1.0) k/uL Eosinophils # (Manual) (0-0.7) k/uL Nucleated RBCs (0-0) /100 WBC Manual Slide Review PT (9.0-12.0) sec INR (<1.2) APTT (22.0-30.0) sec Sodium (137-145) mmol/L Potassium (3.5-5.1) mmol/L Chloride (98-107) mmol/L Carbon Dioxide (22-30) mmol/L Anion Gap mmol/L BUN (9-20) mg/dL Creatinine (0.66-1.25) mg/dL Est GFR (CKD-EPI)AfAm (>60 ml/min/1.73 sqM) Est GFR (CKD-EPI)NonAf (>60 ml/min/1.73 sqM) Glucose (74-99) mg/dL Calcium (8.4-10.2) mg/dL Magnesium (1.6-2.3) mg/dL Total Bilirubin (0.2-1.3) mg/dL AST (17-59) U/L ALT (4-49) U/L Alkaline Phosphatase (38-126) U/L Troponin I <0.012 <0.012 (0.000-0.034) ng/mL Total Protein (6.3-8.2) g/dL Albumin (3.5-5.0) g/dL Lipase (23-300) U/L - Radiology Data One view of the chest is obtained. Report reviewed in its entirety. Impression by Dr. Isabel shows normal chest. No change. CT brain without contrast is obtained. Report was reviewed in its entirety. Impression by Dr. Isabel shows normal unenhanced head computed tomography scan to CT angio head and neck are obtained. Report is reviewed in its entirety. Impression by Dr. Isabel shows negative CT angiogram of the brain. Negative CT angiogram of the neck. (Jazzy Rangel) Disposition Is patient prescribed a controlled substance at d/c from ED?: No Time of Disposition: 03:11 <Jazzy Rangel - Last Filed: 10/02/20 03:11> <Sonu Dove - Last Filed: 10/02/20 05:56> Clinical Impression: Arm paresthesia, left, Chest pain Disposition: HOME SELF-CARE Condition: Good Instructions (If sedation given, give patient instructions): Chest Pain (ED), Paresthesia (ED) Additional Instructions: Follow-up with your primary care physician for recheck in 1-2 days. Follow up with the neurologist for evaluation of possible TIA. Return to the emergency department for any new, worsening, or concerning symptoms. Referrals: Layne Ross MD [Primary Care Provider] - 1-2 days Tanvi Magaña MD [Medical Doctor] - 1-2 days Thania Dunn MD [REFERRING] - 1-2 days Cynthia Dunn MD [REFERRING] - 1-2 days Sg Harirngton DO [STAFF PHYSICIAN] - 1-2 days
[2020-10-01 23:35] LABS: HGB 14.5 gm/dL (13.0-17.5); MCHC 33.8 g/dL (31.0-37.0); MCV 88.9 fL (80.0-100.0); Mean Platelet Volume 7.7; Platelet Count 234 k/uL (150-450); RBC 4.84 m/uL (4.30-5.90); RDW 12.4 % (11.5-15.5); WBC 10.1 k/uL (3.8-10.6)
[2020-10-01 23:47] LABS: ALT 62 U/L (4-49); AST 34 U/L (17-59); African American GFR (CKD) >90 (>60 ml/min/1.73 sqM); Albumin 4.6 g/dL (3.5-5.0); Alkaline Phosphatase 52 U/L (38-126); Anion Gap 8 mmol/L; Blood Urea Nitrogen 15 mg/dL (9-20); Calcium 9.4 mg/dL (8.4-10.2); Carbon Dioxide 28 mmol/L (22-30); Chloride 103 mmol/L (98-107); Glucose 154 mg/dL (74-99); Lipase 70 U/L (23-300); Magnesium 2.2 mg/dL (1.6-2.3); Non-African American GFR(CKD) >90 (>60 ml/min/1.73 sqM); Potassium 4.1 mmol/L (3.5-5.1); Sodium 139 mmol/L (137-145); Total Bilirubin 0.5 mg/dL (0.2-1.3); Total Protein 7.4 g/dL (6.3-8.2)
[2020-10-01 23:51] LABS: INR 0.9 (<1.2); Prothrombin Time 10.2 sec (9.0-12.0)
--- NOTE | 2020-10-01 23:55 | XR ---
EXAMINATION TYPE: XR chest 1V DATE OF EXAM: 10/01/2020 COMPARISON: 11/13/2016 HISTORY: Chest pain TECHNIQUE: FINDINGS: Heart and mediastinum are normal. Lungs are clear. Diaphragm is normal. Bony thorax appears normal. IMPRESSION: Normal chest. No change
--- NOTE | 2020-10-01 23:56 | CT ---
EXAMINATION TYPE: CT brain wo con DATE OF EXAM: 10/01/2020 COMPARISON: None HISTORY: numbness CT DLP: 1159 mGycm Automated exposure control for dose reduction was used. The ventricles and sulci appear normal. There is no mass effect nor midline shift. There is no sign o f intracranial hemorrhage. Calvarium is intact. There is no evidence of cerebral edema. Skull base is intact. Temporal bones appear normal. IMPRESSION: Normal unenhanced head CT scan.
--- NOTE | 2020-10-02 | CT ---
EXAMINATION TYPE: CT angio head neck DATE OF EXAM: 10/01/2020 COMPARISON: None HISTORY: numbness CT DLP: 945.1 mGycm Automated exposure control for dose reduction was used. CONTRAST: Performed with IV Contrast, patient injected with 65 mL of Isovue 370. Images were obtained from the proximal great vessels to the vertex of the brain with IV contrast and 3-D post processed images. There appears to be normal branching pattern of the great vessels on the aortic arch. There is arteri al flow in both subclavian arteries. These appear widely patent. There is arterial flow in the common internal and external carotid arteries bilaterally. There is wide patency of the carotid artery bifu rcations. There is arterial flow in both vertebral arteries. There is arterial flow in the vertebrobasilar artery system. Vertebral arteries are fairly symmetric. There is no evidence of carotid or vertebral artery aneurysm or dissection. There is arterial flow in the anterior middle and posterior cerebral arteries. There is no evidence o f intracranial aneurysm or neovascularity. There is no mass effect. I see no evidence of intracranial arterial stenosis. There is normal contrast opacification of the venous sinuses. IMPRESSION: Negative CT angiogram of the brain. Negative CT angiogram of the neck.
[2020-10-02 00:02] LABS: Partial Thromboplastin Time 21.8 sec (22.0-30.0)
[2020-10-02 00:14] LABS: Eosinophils # (M) 2.63 k/uL (0-0.7); Lymphocytes # (M) 2.32 k/uL (1.0-4.8); Monocytes # (M) 1.11 k/uL (0-1.0); Neutrophils # (M) 4.04 k/uL (1.3-7.7); Neutrophils % (M) 40 %; Nucleated Red Blood Cells 0 /100 WBC (0-0); Total Cells Counted 200
[2020-10-02 02:28] VITALS: RESP 16
[2020-10-02 03:22] VITALS: BP 121/83; PULSE 73
== END 2020-10-02 03:22 | disposition home or self-care (01) ==
LOC: EC 22:43
DX: R07.89 Other chest pain (principal); R20.2 Paresthesia of skin; I10 Essential (primary) hypertension; Z79.899 Other long term (current) drug therapy
CPT/HCPCS: 36415 ×2; 93005; 80053; 83690; 83735; 84484 ×2; 85025; 85610; 85730; 71045; 70496; 70450; 70498; 99285; Q9967

== ENCOUNTER → 2021-04-08 | Outpatient (CLI) | payer BC ==
[2021-04-08 10:14] LABS: Albumin 4.7 g/dL (3.5-5.0); Bilirubin,Unconjugated 0.5 mg/dL (0.0-1.1); Total Bilirubin 0.5 mg/dL (0.2-1.3); Total Protein 7.2 g/dL (6.3-8.2)
--- NOTE | 2021-04-08 13:02 | US ---
EXAMINATION TYPE: US liver DATE OF EXAM: 04/08/2021 COMPARISON: 06/05/2020 CLINICAL HISTORY: R16.0 Heptomegly. Liver lesion, abn labs EXAM MEASUREMENTS: Liver Length: 18.2 cm Gallbladder Wall: 0.2 cm CBD: 0.4 cm Right Kidney: 12.7 x 6.5 x 6.4 cm Pancreas: Tail obscured by overlying bowel gas, echogenic in appearance Liver: Increased attenuation, decreased visualization of vessels suggestive of fatty infiltrate. Co arse. Enlarged in size. Hypoechoic nonvascular liver lesion = 3.0 x 2.6 x 3.2 cm Gallbladder: wnl Evidence for sonographic Razo's sign: neg CBD: wnl Right Kidney: No hydronephrosis or masses seen IMPRESSION: Echogenic liver with poor penetration is nonspecific but most commonly seen with hepatic steatosis wi th unchanged hypoechoic lesion of the left hepatic lobe. Clinical followup is recommended.
[2021-04-08 18:55] LABS: Chol/HDL Ratio 4.41; LDL Cholesterol,Calculated 91.4 mg/dL (0.0-131.0); VLDL Calculation 24.6 mg/dL (5.00-40.00)
== END | disposition home or self-care (01) ==
LOC: RADUSWWP 08:48
PROVIDERS: ATTEND Internal Medicine Gastroenterology
DX: K76.9 Liver disease, unspecified (principal)
CPT/HCPCS: 76705; 80061; 80076

== ENCOUNTER → 2021-09-13 | Outpatient (CLI) | payer BC ==
[2021-09-13 15:40] LABS: Basophils # (A) 0.09 X 10*3/uL (0.00-0.10); Basophils % (A) 1.2 %; Eosinophils % (A) 14.6 %; HCT 46.8 % (39.6-50.0); HGB 15.5 g/dL (13.0-17.0); Lymphocytes # (A) 1.57 X 10*3/uL (0.90-5.00); Lymphocytes % (A) 20.9 %; MCH 30.2 pg (27.0-32.0); MCHC 33.1 g/dL (32.0-37.0); MCV 91.1 fL (80.0-97.0); Mean Platelet Volume 10.9 fL (9.5-12.2); Monocytes # (A) 0.89 X 10*3/uL (0.20-1.00); Monocytes % (A) 11.8 %; Neutrophils # (A) 3.84 X 10*3/uL (1.80-7.70); Neutrophils % (A) 51.1 %; Platelet Count 211 X 10*3/uL (140-440); RBC 5.14 X 10*6/uL (4.40-5.60); RDW 11.8 % (11.5-14.5); WBC 7.52 X 10*3/uL (4.50-10.00)
[2021-09-13 17:36] LABS: ALT 68 U/L (10-49); AST 31 U/L (14-35); African American GFR (CKD) 124.6 (60.0-200.0); Albumin 4.9 g/dL (3.8-4.9); Albumin/Globulin Ratio 2.21 (1.60-3.17); Alkaline Phosphatase 86 U/L (41-126); BUN/Creat Ratio 18.97 Ratio (12.00-20.00); Blood Urea Nitrogen 14.8 mg/dL (9.0-27.0); Chloride 96 mmol/L (96-109); Chol/HDL Ratio 5.43 Ratio; Globulin 2.2 g/dL (1.6-3.3); Glucose 306 mg/dL (70-110); LDL Cholesterol,Calculated 65.9 mg/dL (0.0-131.0); Non-African American GFR(CKD) 107.5 (60.0-200.0); Potassium 4.4 mmol/L (3.5-5.5); Sodium 136 mmol/L (135-145); Total Protein 7.1 g/dL (6.2-8.2)
== END | disposition home or self-care (01) ==
LOC: LABWHC1 07:23
PROVIDERS: ATTEND Internal Medicine
DX: Z00.00 Encounter for general adult medical examination without abnormal findings (principal); Z12.5 Encounter for screening for malignant neoplasm of prostate; R73.9 Hyperglycemia, unspecified
CPT/HCPCS: 80061; 80053; 85025; 83036; 36415; G0103

== ENCOUNTER → 2022-01-08 | Outpatient (CLI) | payer BC | END | disposition home or self-care (01) | LOC: LABWHC1 07:02 | PROVIDERS: ATTEND Internal Medicine | DX: E11.9 Type 2 diabetes mellitus without complications (principal) | CPT/HCPCS: 36415; 83036 ==

== ENCOUNTER → 2022-10-24 | Outpatient (CLI) | payer BC ==
[2022-10-24 23:24] LABS: ALT 74 U/L (10-49); AST 34 U/L (14-35); Chol/HDL Ratio 4.54 Ratio; LDL Cholesterol,Calculated 88.9 mg/dL (0.0-131.0)
== END | disposition home or self-care (01) ==
LOC: LABWHC1 15:08
PROVIDERS: ATTEND Internal Medicine Cardiovascular Disease
DX: E11.9 Type 2 diabetes mellitus without complications (principal); E78.2 Mixed hyperlipidemia; R54 Age-related physical debility; Z12.5 Encounter for screening for malignant neoplasm of prostate
CPT/HCPCS: 36415; 80061; 83036; 84153; 84450; 84460

== ENCOUNTER → 2024-04-04 | Outpatient (CLI) | payer BC ==
[2024-04-04 10:48] LABS: Basophils # (A) 0.07 X 10*3/uL (0.00-0.10); Basophils % (A) 1.1 %; Eosinophils # (A) 0.25 X 10*3/uL (0.04-0.35); Eosinophils % (A) 3.9 %; HCT 42.9 % (39.6-50.0); HGB 14.5 g/dL (13.0-17.0); Lymphocytes # (A) 2.13 X 10*3/uL (0.90-5.00); Lymphocytes % (A) 33.5 %; MCH 30.8 pg (27.0-32.0); MCHC 33.8 g/dL (32.0-37.0); MCV 91.1 FL (80.0-97.0); Mean Platelet Volume 11.1 FL (9.5-12.2); Monocytes # (A) 0.74 X 10*3/uL (0.20-1.00); Monocytes % (A) 11.6 %; NRBC Per 100 WBC 0 X 10*3/uL (0.00-0.01); Neutrophils # (A) 3.14 X 10*3/uL (1.80-7.70); Neutrophils % (A) 49.4 %; Platelet Count 221 X 10*3/uL (140-440); RBC 4.71 X 10*6/uL (4.40-5.60); RDW 12.1 % (11.5-14.5); WBC 6.36 X 10*3/uL (4.50-10.00)
[2024-04-04 10:51] LABS: ALT 42 U/L (10-49); AST 25 U/L (14-35); Albumin 4.7 g/dL (3.8-4.9); Albumin/Globulin Ratio 2.24 Ratio (1.60-3.17); Alkaline Phosphatase 46 U/L (41-126); BUN/Creat Ratio 21.38 Ratio (12.00-20.00); Blood Urea Nitrogen 17.1 mg/dL (9.0-27.0); Calcium 9.5 mg/dL (8.7-10.3); Carbon Dioxide 26.5 mmol/L (21.6-31.8); Chloride 103 mmol/L (96-109); Globulin 2.1 g/dL (1.6-3.3); Glucose 152 mg/dL (70-110); Potassium 4.4 mmol/L (3.5-5.5); Sodium 139 mmol/L (135-145); Total Bilirubin 0.6 mg/dL (0.3-1.2); Total Protein 6.8 g/dL (6.2-8.2)
== END | disposition home or self-care (01) ==
LOC: LABWHC1 07:07
PROVIDERS: ATTEND Internal Medicine Gastroenterology
DX: K76.0 Fatty (change of) liver, not elsewhere classified (principal)
CPT/HCPCS: 36415; 80053; 85025

== ENCOUNTER → 2025-02-02 | Outpatient (CLI) | payer BC ==
--- NOTE | 2025-02-02 09:03 | XR ---
EXAMINATION TYPE: XR foot limited RT DATE OF EXAM: 02/02/2025 8:52 AM INDICATION: Patient age:Male; 50 years old; Reason for study: DEFORMITY,MASS; PHH. pain COMPARISON: None TECHNIQUE: The right foot was examined in the AP and lateral projections. FINDINGS: No evidence of any acute osseous pathology. No evidence of soft tissue swelling. No distinct dorsal surface abnormality corresponding to patient's reported palpable finding. No osseous erosions. There is joint space narrowing with marginal osteophytosis of the first MTP joint. Small plantar and vending enterprises supervisor ior communicating enthesophytes. IMPRESSION: 1. No evidence of acute fracture. 2. No distinct dorsal surface abnormality corresponding to patient's reported palpable finding. 3. 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 [facility], , 02/02/2025 9:01 AM
== END | disposition home or self-care (01) ==
LOC: RADXRMAIN 08:37
PROVIDERS: ATTEND Family Medicine
DX: M19.071 Primary osteoarthritis, right ankle and foot (principal); M21.961 Unspecified acquired deformity of right lower leg

== ENCOUNTER → 2025-04-03 | Outpatient (CLI) | payer BC ==
[2025-04-03 15:27] LABS: BUN/Creat Ratio 14.62 Ratio (12.00-20.00); Blood Urea Nitrogen 11.7 mg/dL (9.0-27.0); Chloride 104 mmol/L (96-109); Glucose 118 mg/dL (70-110); Potassium 5.4 mmol/L (3.5-5.5); Sodium 141 mmol/L (135-145)
[2025-04-03 15:28] LABS: ALT 52 U/L (10-49); AST 32 U/L (14-35); Albumin 4.7 g/dL (3.8-4.9); Albumin/Globulin Ratio 1.96 Ratio (1.60-3.17); Alkaline Phosphatase 50 U/L (41-126); Anion Gap 10.10 mmol/L (4.00-12.00); Calcium 9.8 mg/dL (8.7-10.3); Carbon Dioxide 26.9 mmol/L (21.6-31.8); Globulin 2.4 g/dL (1.6-3.3); Total Protein 7.1 g/dL (6.2-8.2)
[2025-04-03 16:09] LABS: Basophils # (A) 0.09 X 10*3/uL (0.00-0.10); Basophils % (A) 1.2 %; Eosinophils # (A) 0.46 X 10*3/uL (0.04-0.35); Eosinophils % (A) 6.1 %; HCT 44.2 % (39.6-50.0); HGB 14.4 g/dL (13.0-17.0); Immature Grans, Automated 0.40 %; Lymphocytes # (A) 1.95 X 10*3/uL (0.90-5.00); Lymphocytes % (A) 26.0 %; MCH 29.8 pg (27.0-32.0); MCHC 32.6 g/dL (32.0-37.0); MCV 91.5 FL (80.0-97.0); Monocytes # (A) 0.82 X 10*3/uL (0.20-1.00); Monocytes % (A) 10.9 %; NRBC Per 100 WBC 0 X 10*3/uL (0.00-0.01); Neutrophils # (A) 4.16 X 10*3/uL (1.80-7.70); Neutrophils % (A) 55.4 %; Platelet Count 254 X 10*3/uL (140-440); RBC 4.83 X 10*6/uL (4.40-5.60); RDW 11.9 % (11.5-14.5); WBC 7.51 X 10*3/uL (4.50-10.00)
== END | disposition home or self-care (01) ==
LOC: LABWHC1 09:17
PROVIDERS: ATTEND Internal Medicine Gastroenterology
DX: K76.0 Fatty (change of) liver, not elsewhere classified (principal)
CPT/HCPCS: 36415; 80053; 85025